=== PATIENT | female | born 1980 | race Caucasian/White ===

== ENCOUNTER 2023-07-05 10:33 | Emergency (ER) | payer SELFPAY ==
--- NOTE | ~2023-07-05 | US_ITS ---
EXAMINATION: US abdomen limited DATE: 07/05/2023 13:11 INDICATION: Right upper quadrant pain TECHNIQUE: Multiple grayscale and Doppler ultrasound images of the abdomen were obtained. COMPARISON: None available FINDINGS: Bowel gas obscures visualization of the pancreas. The visualized portions of the pancreas a re unremarkable. The liver is normal with normal echogenicity and echotexture. No surface nodularity. Normal hepatopetal flow in the main portal vein. Stones are present in the nondistended gallbladder. No pericholecystic fluid or gallbladder wall thickening are identified. The normal common bile duct measures 4 mm. Sonographic Coleman sign is positive. IMPRESSION: 1. Cholelithiasis and positive sonographic Coleman sign without additional findings of acute cholecyst itis. Findings are equivocal for cholecystitis. Consider nuclear hepatobiliary scan. Reviewed, dictated and finalized at location [facility]. [facility] IMPRESSION: 1. Cholelithiasis and positive sonographic Coleman sign without additional findi ngs of acute cholecystitis. Findings are equivocal for cholecystitis. Consider nuclear hepatobiliary scan.
[2023-07-05 10:48] VITALS: BP 115/74; PULSE 90; RESP 18; TEMP 36.4; O2SAT 100
[2023-07-05 11:42] LABS: Basophils Percent Auto 0.4 % (0.2-1.2); Eosinophils Absolute Auto 0.1 K/mm3 (0-0.3); Eosinophils Percent Auto 1.5 % (0-4.4); Hematocrit 37.6 % (37.0-47.0); Hemoglobin 13.2 g/dL (12.0-15.0); Immature Granulocyte Absolute 0.01 K/mm3 (0.00-0.031); Immature Granulocyte Percent A 0.1 % (0-0.5); Lymphocytes Absolute Auto 2.76 K/mm3 (0.9-3.2); Lymphocytes Percent Auto 37.9 % (18.3-44.2); Mean Corpuscular HGB Conc 35.1 g/dl (32-36); Mean Corpuscular Hemoglobin 33.6 pg (26-34); Mean Corpuscular Volume 95.7 fl (80-100); Mean Platelet Volume 9.2 fl (7.4-10.4); Monocytes Absolute Auto 0.5 K/mm3 (0.1-0.6); Monocytes Percent Auto 7.1 % (2.6-8.5); Neutrophils Absolute Auto 3.9 K/mm3 (1.3-6.7); Platelet Count Result 275 k/mm3 (150-375); Red Blood Count 3.93 M/mm3 (4.2-5.4); Red Cell Distribution Width 12.5 % (11.5-14.5); White Blood Count 7.3 K/mm3 (4.5-10.0)
[2023-07-05 11:43] LABS: Appearance Urine Clear (Clear); Bilirubin Urine Negative (Negative); Blood Urine Negative (Negative); Color Urine Yellow (Yellow); Glucose Urine UA Negative (Negative); Ketones Urine Negative (Negative); Leukocyte Esterase Ur Negative LEU/UL (Negative); Nitrate Urine Negative (Negative); Protein Urine Negative (Negative); Specific Grav Ur 1.017 (1.001-1.035); Urobilinogen Urine 0.2 mg/dL (<2.0); pH Urine 7.5 (5.0-9.0)
[2023-07-05 12:05] LABS: Add Urine Microscopic? NO
[2023-07-05 12:10] LABS: Alanine Aminotransferase 20 U/L (6-35); Albumin Level 4.7 g/dL (3.5-5.1); Alkaline Phosphatase 69 U/L (38-126); Anion Gap 5 mmol/L (8-16); Aspartate Amino Transferase 29 U/L (14-36); Bilirubin,Total 1.1 mg/dL (0.2-1.3); Blood Urea Nitrogen 13 mg/dL (7-17); Calcium 9.4 mg/dL (8.4-10.2); Carbon Dioxide 39 mmol/L (22-30); Chloride 95 mmol/L (98-107); Estimated Glomerular Filt Rate > 60; Glucose 99 mg/dL (65-110); Lipase 61 U/L (23-300); Potassium 2.6 mmol/L (3.4-5.0); Sodium 139 mmol/L (137-145)
[2023-07-05 12:16] VITALS: BP 115/85; PULSE 82; RESP 16; O2SAT 100
[2023-07-05] MEDS: POTASSIUM CHLORIDE 20 MEQ PACKET (FOR LIQUID) 40 MEQ PO (12:27)
[2023-07-05] MEDS: SODIUM CHLORIDE 0.9% IV 1,000 ML 999 ML IV CONT (12:27)
[2023-07-05 12:31] VITALS: BP 107/93; PULSE 90; RESP 14; TEMP 36.7; O2SAT 100
--- NOTE | 2023-07-05 12:38 | ED.GENADULT ---
HPI - General Adult General Chief complaint: Abdominal Pain Stated complaint: R side/back pain Time Seen by Provider: 07/05/23 11:43 History of Present Illness HPI narrative: 43-year-old female presenting to the emergency department for evaluation of right upper quadrant pain. Patient states that she did have approximately 100 lb weight loss intentionally this year since being on monjaro. patient states that yesterday when she was at work she had onset of right upper quadrant pain. Patient does describe some associated nausea without vomiting. Patient has had decreased p.o. intake due to this pain. Patient has no prior history of gallbladder disease. Patient denies any associated chest pain or shortness of breath or pain with urination. Related Data Home Medications Medication Instructions Recorded Confirmed bupropion HCl 150 mg 24 hr tablet, mg PO 07/05/23 extended release dextroamphetamine-amphetamine ER PO 07/05/23 20 mg 24hr capsule,extend release (Adderall XR) fluticasone propionate 50 intranasal 07/05/23 mcg/actuation nasal spray,suspension pantoprazole 40 mg tablet,delayed mg PO 07/05/23 release tirzepatide 12.5 mg/0.5 mL mg subcut 07/05/23 subcutaneous pen injector (Mounjaro) triamterene 37.5 cap 07/05/23 mg-hydrochlorothiazide 25 mg capsule Allergies Allergy/AdvReac Type Severity Reaction Status Date / Time amoxicillin Allergy Hives Verified 07/05/23 12:26 latex Allergy Hives Verified 07/05/23 12:26 levofloxacin [From Levaquin] Allergy Migraine Verified 07/05/23 12:26 Penicillins Allergy Hives Verified 07/05/23 12:26 Sulfa (Sulfonamide Allergy Hives Verified 07/05/23 12:26 Antibiotics) Review of Systems Review of Systems: All systems reviewed & are unremarkable except as noted in HPI and below Exam Narrative: APPEARANCE: Well appearing, no pain, no distress, well-nourished. HEAD: normocephalic, atraumatic. EYES: PERRLA/EOMI, conjunctivae clear. NOSE: Normal no drainage EARS:TMS clear with good light reflex. THROAT: Pharynx clear, no exudate. NECK: Supple. No adenopathy, no masses. RESPIRATORY: Airway patent, respirations nonlabored. Clear to auscultation bilaterally, no rales, rhonchi, wheezing. CARDIOVASCULAR: Regular rate and rhythm without murmurs rubs or gallops. ABDOMINAL: Soft, Nondistended, normal bowel sounds, mild right upper quadrant tenderness to palpation, no epigastric tenderness to palpation, no rebound or guarding. MUSCULOSKELETAL: Moves all extremities. Strength/ROM intact, No edema, No calf tenderness. NEURO: Alert. Cranial nerves II through XII intact. Grossly intact SKIN: Warm, dry. Normal Color Course Course Emergency Course: 43-year-old female presenting to the emergency department for evaluation of left upper quadrant abdominal pain. Patient does not have any evidence of peritonitis on her exam. Patient is afebrile with no leukocytosis and a stable hemoglobin. Patient has no elevated lactic acid a normal lipase and normal AST ALT and alk-phos. Patient did have a low potassium of 2.6 but this was replaced both IV and orally. UA shows no evidence of urinary tract infection. Ultrasound was ordered due to the patient having right upper quadrant pain and the ultrasound did show sonographic Coleman sign and patient did have evidence of cholelithiasis. Patient had declined any medications for pain control but was still having some mild upper quadrant tenderness on re-exam. I had a lengthy discussion with the patient regarding treatment options and patient prefers to be discharged to home. I discussed the case with Dr. Larkin and he recommended starting the patient on antibiotics, provide medications for pain control and the patient should have follow-up on Saturday. Patient was comfortable with this plan. Patient has a number of underlying antibiotic allergies and patient was started on Flagyl due to limited options. Patient was enco
[2023-07-05] MEDS: Please add drug allergy info to patient profile. XX (12:40)
[2023-07-05] MEDS: KCL 20 MEQ/SW 100 ML 100 ML 50 MEQ IVPB (12:40)
[2023-07-05 13:37] VITALS: BP 110/86; RESP 17; TEMP 36.4; O2SAT 100
[2023-07-05 14:30] VITALS: BP 116/68; PULSE 80; RESP 16; TEMP 36.6; O2SAT 98
== END 2023-07-05 14:45 | disposition home or self-care (01) ==
PROVIDERS: Emergency Provider Emergency Medicine
DX: K80.20 Calculus of gallbladder without cholecystitis without obstruction (principal); Z79.899 Other long term (current) drug therapy
CPT/HCPCS: 36415; 76705; 80053; 81003; 81025; 83690; 85025; 96365; 96366; 99284; A9270; J3480; J7030